=== PATIENT | female | born 1950 | race Caucasian/White ===

== ENCOUNTER → 2016-07-21 | Outpatient (CLI) | payer MEDICARE ==
--- NOTE | 2016-07-23 09:52 | MM ---
Reason for exam: screening (asymptomatic). Last mammogram was performed 1 year ago. History: Patient is postmenopausal. Family history of breast cancer in maternal grandmother. Physical Findings: A clinical breast exam by your physician is recommended on an annual basis and results should be correlated with mammographic findings. MG Screening Mammo w CAD Bilateral CC and MLO view(s) were taken. Prior study comparison: July 18, 2015, bilateral MG screening mammo w CAD. July 05, 2014, bilateral MG screening mammo w CAD. January 18, 2014, left breast MG diagnostic mammo LT w CAD. July 03, 2013, bilateral digital screening mammo w/CAD. There are scattered fibroglandular densities. No significant changes when compared with prior studies. ASSESSMENT: Negative, BI-RAD 1 RECOMMENDATION: Routine screening mammogram of both breasts in 1 year.
== END | disposition home or self-care (01) ==
LOC: RADMAMWWP 13:18
PROVIDERS: ATTEND Family Medicine
DX: Z12.31 Encounter for screening mammogram for malignant neoplasm of breast (principal)

== ENCOUNTER → 2016-12-01 | Day surgery (SDC) | payer MEDICARE ==
[2016-11-30 10:18] VITALS: BMI 22.9
[~2016-12-01] MED LIST: LACTATED RINGERS 1,000 ML IV SCH; LIDOCAINE 1% 20 ML VIAL (10MG/ML) FOR IV START INTRADERMA PRN; PROPOFOL 10 MG/ML 20 ML VIAL IV ONE
[2016-12-01 13:22] VITALS: RESP 18; TEMP 97
[2016-12-01 15:02] VITALS: BP 128/70; PULSE 64
--- NOTE | 2016-12-01 15:22 | P.PCN ---
Date of Procedure: 12/01/16 Preoperative Diagnosis: Postoperative Diagnosis: Procedure(s) Performed: Procedure: Total colonoscopy with biopsy. Preoperative diagnosis: Rectal bleeding and history of polyps. Postoperative diagnosis: 1. Segmental colitis in the distal sigmoid, probably representing resolving self-limited or ischemic colitis, not bleeding at the time of this exam. 2. Biopsies obtained. 3. No polyps or tumors. Preparation: HalfLytely prep. Sedation was provided by anesthesia. Brief clinical history: The patient is a 66-year-old female who is referred for an episode of rectal bleeding that lasted around 2 days last month while she drove to [place] [id number]. The patient did not have any changes in her bowels and has not had any bleeding since. She has history of polyps and I performed an upper endoscopy in June 2012. I recommended at that time a repeat exam in around 3 years. Procedure: With the patient on her left lateral decubitus position and after informed consent and adequate sedation, the perianal area was inspected and it did not show any fissures or fistulas. There were no masses felt on digital rectal examination. The Olympus CFQ 160L video colonoscope was then inserted in the rectum and the usual fashion and advanced to the cecum there was a 10 cm segment of resolving colitis in the distal sigmoid between 20-30 cm from the anal verge which showed edema erythema and friability of the mucosa but there was no ulcerations, exudation or spontaneous bleeding. No polyps or tumors were seen or any strictures or other pathology. I obtained biopsies in the sigmoid then the endoscope was withdrawn. The patient tolerated the procedure well. Plan: The patient was reassured. Will await biopsy results. Further plans can be made based on her course and biopsy results. She will follow-up with you as planned. With her history of polyps, I recommended repeat colonoscopy in 5 years. I will be happy to see as needed if her symptoms recur or change. Implants: Indications for Procedure: Operative Findings: Description of Procedure:
== END | disposition home or self-care (01) ==
LOC: ORWHC2ENDO 13:06
DX: K52.9 Noninfective gastroenteritis and colitis, unspecified (principal); Z87.19 Personal history of other diseases of the digestive system; Z86.010 Personal history of colon polyps; Z79.899 Other long term (current) drug therapy; Z88.0 Allergy status to penicillin
CPT/HCPCS: 88305; 45380; J2704

== ENCOUNTER → 2017-08-02 | Outpatient (CLI) | payer MEDICARE ==
--- NOTE | 2017-08-03 11:40 | MM ---
Reason for exam: screening (asymptomatic). Last mammogram was performed 1 year ago. History: Patient is postmenopausal. Family history of breast cancer in maternal grandmother. Physical Findings: A clinical breast exam by your physician is recommended on an annual basis and results should be correlated with mammographic findings. MG Screening Mammo w CAD Bilateral CC and MLO view(s) were taken. Prior study comparison: July 21, 2016, bilateral MG screening mammo w CAD. July 18, 2015, bilateral MG screening mammo w CAD. The breast tissue is heterogeneously dense. This may lower the sensitivity of mammography. Finding: There are typically benign diffuse/scattered calcifications in both breasts. No suspicious abnormality. No significant changes in finding since July 21, 2016 and July 18, 2015. ASSESSMENT: Benign, BI-RAD 2 RECOMMENDATION: Routine screening mammogram of both breasts in 1 year.
== END | disposition home or self-care (01) ==
LOC: RADMAMWWP 10:47
PROVIDERS: ATTEND Family Medicine
DX: Z12.31 Encounter for screening mammogram for malignant neoplasm of breast (principal)
CPT/HCPCS: 77067

== ENCOUNTER → 2018-08-03 | Outpatient (CLI) | payer MEDICARE ==
--- NOTE | 2018-08-04 12:01 | MM ---
Reason for exam: screening (asymptomatic). Last mammogram was performed 1 year ago. History: Patient is postmenopausal. Family history of breast cancer in maternal grandmother. Physical Findings: A clinical breast exam by your physician is recommended on an annual basis and results should be correlated with mammographic findings. MG Screening Mammo w CAD Bilateral CC and MLO view(s) were taken. Prior study comparison: August 02, 2017, bilateral MG screening mammo w CAD. July 21, 2016, bilateral MG screening mammo w CAD. The breast tissue is heterogeneously dense. This may lower the sensitivity of mammography. Stable benign calcifications. There is no discrete abnormality. No significant changes when compared with prior studies. ASSESSMENT: Benign, BI-RAD 2 RECOMMENDATION: Routine screening mammogram of both breasts in 1 year.
== END | disposition home or self-care (01) ==
LOC: RADMAMWWP 11:03
PROVIDERS: ATTEND Family Medicine
DX: Z12.31 Encounter for screening mammogram for malignant neoplasm of breast (principal)
CPT/HCPCS: 77067

== ENCOUNTER 2018-09-01 10:07 | Day surgery (SDC) | payer MEDICARE ==
[2018-08-31 08:25] VITALS: BMI 22.9
[~2018-09-01 10:07] MED LIST changes: -PROPOFOL 10 MG/ML 20 ML VIAL IV ONE
[2018-09-01 10:38] VITALS: TEMP 98.1
[2018-09-01] MEDS ORDERED: LACTATED RINGERS 1,000 ML IV ONE (10:41)
[2018-09-01] MEDS ORDERED: LIDOCAINE 1% 20 ML VIAL (10MG/ML) FOR IV START INTRADERMA ONE (10:42)
[2018-09-01] MEDS ORDERED: PROPOFOL 10 MG/ML 20 ML VIAL IV ONE (11:59)
[2018-09-01 12:33] VITALS: RESP 18
--- NOTE | 2018-09-01 12:43 | P.PCN ---
Date of Procedure: 09/01/18 Procedure(s) Performed: Procedure: Total colonoscopy. Preoperative diagnosis: Iron deficiency anemia. Postoperative diagnosis: Sigmoid diverticulosis with no evidence of acute diverticulitis, strictures, polyps or cancer. Preparation: HalfLytely prep. Sedation: Was provided by anesthesia. Brief clinical history: The patient is a 68-year-old female who is scheduled for this evaluation because of iron deficiency anemia. The patient had a prior colonoscopy in November 2016 for rectal bleeding and at that time she was found to have a segment of colitis in the distal sigmoid. She also has history of polyps. No history of overt bleeding. This evaluation is to assess for neoplasia or other pathology. Procedure: With the patient on her left lateral decubitus position and after informed consent and adequate sedation, the perianal area was inspected and it did not show any fissures or fistulas. There were no masses felt on digital rectal examination. The Olympus CFH 190L video colonoscope was then inserted in the rectum in the usual fashion and advanced to the cecum. There were few diverticular orifices seen scattered in the sigmoid but I saw no evidence of acute diverticulitis or strictures. The mucosa appeared healthy. No polyps or tumors were seen. I retroflexed the endoscope in the rectum before the endoscope was withdrawn. The patient tolerated the procedure well. Plan: The patient was reassured. Discussed dietary measures. As for her iron deficiency anemia, consideration can be given for an upper GI workup based on her symptoms and findings in the future.
[2018-09-01 13:14] VITALS: BP 105/65; PULSE 79
== END 2018-09-01 13:38 | disposition home or self-care (01) ==
LOC: ORWHC2ENDO 10:07
DX: K57.30 Diverticulosis of large intestine without perforation or abscess without bleeding (principal); D50.9 Iron deficiency anemia, unspecified; Z86.010 Personal history of colon polyps; Z88.0 Allergy status to penicillin
CPT/HCPCS: 45378; J2704

== ENCOUNTER → 2018-09-14 | Outpatient (CLI) | payer MEDICARE ==
--- NOTE | 2018-09-15 10:29 | ECHOF ---
Referral Reason:R01.1 Heart Murmur MEASUREMENTS -------- HEIGHT: 182.9 cm WEIGHT: 72.6 kg BP: IVSd: 1.9 cm (0.6 - 1.1) LVIDd: 3.5 cm (3.9 - 5.3) LVPWd: 2.1 cm (0.6 - 1.1) IVSs: 2.3 cm LVIDs: 2.0 cm LVPWs: 2.3 cm LAESV Index (A-L): 48.20 ml/m Ao Diam: 3.1 cm (2.0 - 3.7) AV Cusp: 1.9 cm (1.5 - 2.6) LA Diam: 4.1 cm (2.7 - 3.8) MV EXCURSION: 17.354 mm (> 18.000) MV EF SLOPE: 36 mm/s (70 - 150) EPSS: 0.3 cm MV E Vini: 0.56 m/s MV DecT: 156 ms MV A Vini: 0.92 m/s MV E/A Ratio: 0.61 AV maxP.33 mmHg AV meanP.78 mmHg AR PHT: 505 ms RAP: 5.00 mmHg RVSP: 71.73 mmHg FINDINGS -------- Sinus rhythm. This was a technically good study. The cavity size is decreased. There is severe concentric left ventricular hypertrophy. Overall le ft ventricular systolic function is normal with, an EF between 60 - 65 %. Possible infiltrative card iomyopathy. Ricco with a LVOT obstruction with a gradient of 112mmHg. The right ventricle is normal in size. LA is severely dilated >40 ml/m2 The right atrial size is normal. The aortic valve is trileaflet and appears structurally normal. Trace amount of aortic regurgitatio n. Mitral valve is thickened with myxomatous degeneration. The mitral valve leaflets are mildly thicke milton. Severe mitral regurgitation is present. Cannot exclude mitral valve prolapse. Mild tricuspid regurgitation present. There is moderate to severe pulmonary hypertension. The rig ht ventricular systolic pressure, as measured by Doppler, is 71.73mmHg. Trace/mild (physiologic) pulmonic regurgitation. The aortic root size is normal. Normal inferior vena cava with normal inspiratory collapse consistent with estimated right atrial pre ssure of 5 mmHg. There is a trivial pericardial effusion present. CONCLUSIONS -------- 1. Sinus rhythm. 2. This was a technically good study. 3. The cavity size is decreased. 4. There is severe concentric left ventricular hypertrophy. 5. Overall left ventricular systolic function is normal with, an EF between 60 - 65 %. 6. Possible infiltrative cardiomyopathy. 7. Ricco with a LVOT obstruction with a gradient of 112mmHg. 8. The right ventricle is normal in size. 9. LA is severely dilated >40 ml/m2 10. The right atrial size is normal. 11. The aortic valve is trileaflet and appears structurally normal. 12. Trace amount of aortic regurgitation. 13. Mitral valve is thickened with myxomatous degeneration. 14. The mitral valve leaflets are mildly thickened. 15. Severe mitral regurgitation is present. 16. Cannot exclude mitral valve prolapse. 17. Mild tricuspid regurgitation present. 18. There is moderate to severe pulmonary hypertension. 19. The right ventricular systolic pressure, as measured by Doppler, is 71.73mmHg. 20. Trace/mild (physiologic) pulmonic regurgitation. 21. The aortic root size is normal. 22. Normal inferior vena cava with normal inspiratory collapse consistent with estimated right atrial pressure of 5 mmHg. 23. There is a trivial pericardial effusion present. MACHINE B[employer]CH [employer]KER: Kamille Pierre RDCS
== END | disposition home or self-care (01) ==
LOC: RADECHMAIN 13:02
PROVIDERS: ATTEND Internal Medicine
DX: I08.1 Rheumatic disorders of both mitral and tricuspid valves (principal); I27.20 Pulmonary hypertension, unspecified; Q21.3 Tetralogy of Fallot; I31.3 Pericardial effusion (noninflammatory)
CPT/HCPCS: 93306

== ENCOUNTER → 2019-06-12 | Outpatient (CLI) | payer MEDICARE ==
[2019-06-12 15:17] LABS: MCHC 33.2 g/dL (31.0-37.0); MCV 90.2 fL (80.0-100.0); Mean Platelet Volume 7.1; Platelet Count 224 k/uL (150-450); RBC 3.99 m/uL (3.80-5.40); RDW 12.9 % (11.5-15.5); WBC 8.2 k/uL (3.8-10.6)
[2019-06-12 20:30] LABS: Erythrocyte Sedimentation Rate 58 mm/hr (0-20)
[2019-06-13 00:32] LABS: African American GFR (CKD) 87.8 (60.0-200.0); Albumin 4.1 g/dL (3.80-4.90); Albumin/Globulin Ratio 1.64 (1.60-3.17); Anion Gap 8.2 mmol/L (4.00-12.00); BUN/Creat Ratio 16.25 Ratio (12.00-20.00); Calcium 9.1 mg/dL (8.7-10.3); Carbon Dioxide 27.8 mmol/L (21.6-31.8); Globulin 2.5 g/dL (1.6-3.3); Non-African American GFR(CKD) 75.8 (60.0-200.0); Potassium 3.9 mmol/L (3.5-5.5); Total Bilirubin 0.4 mg/dL (0.3-1.2); Total Protein 6.6 g/dL (6.2-8.2)
== END | disposition home or self-care (01) ==
LOC: LABWHC1 14:13
PROVIDERS: ATTEND Internal Medicine
DX: R50.9 Fever, unspecified (principal)
CPT/HCPCS: 36415; 80053; 85027; 85652; 87040

== ENCOUNTER → 2019-11-01 | Outpatient (CLI) | payer MEDICARE ==
[2019-11-01 10:40] LABS: Basophils % (A) 1 %; Eosinophils # (A) 0.1 k/uL (0-0.7); Eosinophils % (A) 3 %; HCT 42.7 % (34.0-46.0); HGB 14.2 gm/dL (11.4-16.0); Lymphocytes # (A) 1.1 k/uL (1.0-4.8); Lymphocytes % (A) 28 %; MCH 29.9 pg (25.0-35.0); MCHC 33.1 g/dL (31.0-37.0); MCV 90.1 fL (80.0-100.0); Mean Platelet Volume 7.7; Monocytes # (A) 0.3 k/uL (0-1.0); Monocytes % (A) 8 %; Neutrophils # (A) 2.3 k/uL (1.3-7.7); Neutrophils % (A) 57 %; Platelet Count 206 k/uL (150-450); RBC 4.74 m/uL (3.80-5.40); RDW 13.9 % (11.5-15.5)
== END | disposition home or self-care (01) ==
LOC: LABWHC1 09:30
PROVIDERS: ATTEND Internal Medicine Cardiovascular Disease
DX: Z48.812 Encounter for surgical aftercare following surgery on the circulatory system (principal); Z95.2 Presence of prosthetic heart valve
CPT/HCPCS: 36415; 85025; 87040

== ENCOUNTER → 2020-03-18 | Outpatient (CLI) | payer MEDICARE ==
[2020-03-18 12:45] LABS: HCT 42.5 % (34.0-46.0); HGB 13.5 gm/dL (11.4-16.0); MCH 28.1 pg (25.0-35.0); MCHC 31.7 g/dL (31.0-37.0); MCV 88.6 fL (80.0-100.0); Mean Platelet Volume 6.9; Platelet Count 224 k/uL (150-450); RDW 13.2 % (11.5-15.5); WBC 6.1 k/uL (3.8-10.6)
[2020-03-18 21:06] LABS: African American GFR (CKD) 87.2 (60.0-200.0); Albumin 4.2 g/dL (3.80-4.90); Albumin/Globulin Ratio 1.75 (1.60-3.17); Calcium 9.2 mg/dL (8.7-10.3); Globulin 2.4 g/dL (1.6-3.3); Non-African American GFR(CKD) 75.2 (60.0-200.0); Potassium 4.4 mmol/L (3.5-5.5); Total Bilirubin 0.6 mg/dL (0.2-1.2); Total Protein 6.6 g/dL (6.2-8.2)
== END | disposition home or self-care (01) ==
LOC: LABWHC1 10:30
PROVIDERS: ATTEND Internal Medicine
DX: R50.9 Fever, unspecified (principal); I33.0 Acute and subacute infective endocarditis
CPT/HCPCS: 36415; 80053; 85027; 87040

== ENCOUNTER → 2020-05-03 | Outpatient (CLI) | payer MEDICARE ==
--- NOTE | 2020-05-06 10:36 | MM ---
Reason for exam: screening (asymptomatic). Last mammogram was performed 1 year and 9 months ago. History: Patient is postmenopausal. Family history of breast cancer in maternal grandmother. Physical Findings: A clinical breast exam by your physician is recommended on an annual basis and results should be correlated with mammographic findings. MG Screening Mammo w CAD Bilateral CC and MLO view(s) were taken. Prior study comparison: August 03, 2018, bilateral MG screening mammo w CAD. August 02, 2017, bilateral MG screening mammo w CAD. The breast tissue is heterogeneously dense. This may lower the sensitivity of mammography. Stable benign calcifications. No significant changes when compared with prior studies. ASSESSMENT: Benign, BI-RAD 2 RECOMMENDATION: Routine screening mammogram of both breasts in 1 year.
== END | disposition home or self-care (01) ==
LOC: RADMAMWWP 10:47
PROVIDERS: ATTEND Internal Medicine
DX: Z12.31 Encounter for screening mammogram for malignant neoplasm of breast (principal)
CPT/HCPCS: 77067

== ENCOUNTER → 2021-03-10 | Outpatient (CLI) | payer MEDICARE ==
[2021-03-10 19:16] LABS: HCT 41.3 % (37.2-46.3); MCH 28.8 pg (27.0-32.0); MCHC 31.5 g/dL (32.0-37.0); MCV 91.4 fL (80.0-97.0); Mean Platelet Volume 9.7 fL (9.5-12.2); Platelet Count 214 X 10*3/uL (140-440); RBC 4.52 X 10*6/uL (4.10-5.20); RDW 13.9 % (11.5-14.5); WBC 5.66 X 10*3/uL (4.50-10.00)
== END | disposition home or self-care (01) ==
LOC: LABWHC1 11:09
PROVIDERS: ATTEND Internal Medicine
DX: Z95.4 Presence of other heart-valve replacement (principal)
CPT/HCPCS: 36415; 85027; 87040

== ENCOUNTER → 2021-10-20 | Outpatient (CLI) | payer MEDICARE ==
--- NOTE | 2021-10-20 10:46 | XR ---
EXAMINATION TYPE: XR ribs bilat w pa chest xray DATE OF EXAM: 10/20/2021 CLINICAL HISTORY: Chest and bilateral rib pain. TECHNIQUE: Single frontal view of the chest is obtained. A frontal and oblique images of the bilatera l ribs. COMPARISON: None FINDINGS: Overlying sternal wires are present. Mild left basilar linear scarring and/or atelectasis. The cardiac silhouette size enlarged. Surgical change to cardiac valve suspected aortic valve is pre sent. Additional multiple surgical sutures suggest possible additional second cardiac valve surgical change. The osseous structures are intact. Dedicated images of the bilateral ribs show no acute displaced fractures. No suspicious lytic or scle rotic osseous lesions clearly seen. Overlying soft tissue is unremarkable. IMPRESSION: 1. Cardiomegaly an chronic changes with mild left basilar linear scarring and/or atelectasis. 2. No acute displaced rib fractures bilaterally.
== END | disposition home or self-care (01) ==
LOC: RADXRYALE 10:11
PROVIDERS: ATTEND Internal Medicine
DX: R07.82 Intercostal pain (principal)
CPT/HCPCS: 71111

== ENCOUNTER → 2021-10-31 | Outpatient (CLI) | payer MEDICARE ==
--- NOTE | 2021-11-10 08:31 | BD ---
EXAMINATION TYPE: Axial Bone Density DATE OF EXAM: 11/07/2021 COMPARISON: NONE CLINICAL HISTORY: 71 years year old Female. ICD-10 CODE: N958 OTHER SPECIFIED MENOPAUSAL AND PERIMEN OPAUSAL DISO Height: 66.5 Weight: 174.9 FRAX RISK QUESTIONS: Alcohol (3 or more units per day): NO Family History (Parent hip fracture): NO Glucocorticoids (More than 3mos): NO History of Fracture in Adulthood: YES Secondary Osteoporosis: 1. Type 1 Diabetes: NO 2. Hyperthyroidism: NO 3. Menopause before 45: NO 4. Malnutrition: NO 5. Chronic liver disease: NO Rheumatoid Arthritis: NO Current Tobacco Use: NO RISK FACTORS HISTORY OF: Hip Fracture (Right/Left): NO Spine Fracture: NO History of Wrist Fracture: NO Surgery to Spine/Hip(right/left)/Wrist (right/left): NO Family History of Osteoporosis: NO Active: YES Diet low in dairy products/other sources of calcium: NO Postmenopausal woman: YES Take estrogen and/or progesterone medications: NO Lost more than 2 inches in height since high school: YES Frequent falls: NO Poor Health: NO Hyperparathyroidism: NO Adrenal Insufficiency: NO MEDICATIONS: Prednisone or other steroids: NO Thyroid Medications: NO Osteoporosis Medications: NO Additional Medications: REFLUX MEDS, MULTI VIT., Additional History: EXAM MEASUREMENTS: Bone mineral densitometry was performed using the [employer] System. Bone mineral density as measured about the Lumbar spine is: ----- L1-L4(G/cm2): 0.926 T Score Values are as follows: ----- L1: -2.6 ----- L2: -2.8 ----- L3: -1.6 ----- L4: -1.9 ----- L1-L4: -2.1 Bone mineral density about the R hip (g/cm2): 0.919 Bone mineral density about the L hip (g/cm2): 0.891 T Score values are as follows: -----R Neck: -0.9 -----L Neck: -1.1 -----R Total: -1.2 -----L Total: -1.0 Bone mineral density has: DECREASED 5.3 % since study of: 05/26/2001 FRAX%s: The graph provided illustrates a 9.0% chance for a major osteoporotic fx and a 1.0% chance fo r the hips probability for fx in 10 years time. IMPRESSION: Osteopenia (T Score between -2.5 and -1). There is slightly increased risk of fracture and the patient may be considered for treatment. Re-Screen 2-5 years. NOTE: T-SCORE=SD OF THE YOUNG ADULT MEAN.
== END | disposition home or self-care (01) ==
LOC: RADBDWWP 08:29
PROVIDERS: ATTEND Internal Medicine
DX: Z53.9 Procedure and treatment not carried out, unspecified reason (principal)

== ENCOUNTER → 2022-06-19 | Outpatient (CLI) | payer MEDICARE ==
--- NOTE | 2022-06-22 08:02 | MM ---
Reason for Exam: Screening (asymptomatic). Last screening mammogram was performed 12 month(s) ago. Patient History: Menarche at age 14. First Full-Term at age 19. Postmenopausal. Patient has history of breast feeding. Maternal grandmother had breast cancer. Risk Values: Marnie 5 year model risk: 1.3%. NCI Lifetime model risk: 3.5%. Prior Study Comparison: 08/03/2018 Bilateral Screening Mammogram, [facility]. 05/03/2020 Bilateral Screening Mammogram, [facility]. 06/16/2021 Bilateral Screening Mammogram, [facility]. Tissue Density: The breast tissue is heterogeneously dense. This may lower the sensitivity of mammography. Findings: Analyzed By CAD. There is no suspicious group of microcalcifications or new suspicious mass in either breast. Overall Assessment: Negative, BI-RAD 1 Management: Screening Mammogram of both breasts in 1 year. A clinical breast exam by your physician is recommended on an annual basis and results should be correlated with mammographic findings. [facility] will attempt to contact patient to return for supplemental views and ultrasound if indicated. Electronically signed and approved by: Joel Cole DO
== END | disposition home or self-care (01) ==
LOC: RADMAMWWP 11:16
PROVIDERS: ATTEND Internal Medicine
DX: Z12.31 Encounter for screening mammogram for malignant neoplasm of breast (principal); Z78.0 Asymptomatic menopausal state; Z80.3 Family history of malignant neoplasm of breast
CPT/HCPCS: 77067

== ENCOUNTER → 2023-01-18 | Outpatient (CLI) | payer MEDICARE ==
--- NOTE | 2023-01-19 11:19 | XR ---
EXAMINATION TYPE: XR foot complete bilateral DATE OF EXAM: 01/18/2023 4:58 PM INDICATION: Patient age:Female; 72 years old; Reason for study: [id number] [place] FOOT PAIN; [facility]. COMPARISON: 11/17/2015. TECHNIQUE: The bilateral feet were examined in the AP, oblique, and lateral projections. FINDINGS: There is metallic density within the right foot calcaneus which is unclear whether its radiopaque fix ation hardware. There is adjacent sclerotic lesion next to this. Mild degeneration changes of the fir st digit metatarsal phalangeal joints. No evidence of acute fracture bilaterally. IMPRESSION: 1. Left: No evidence of acute process involving the left foot. Mild degeneration at the first metata rsophalangeal joint. 2. Right: Sequela of prior fracture right calcaneal fracture with fixation hardware which appears fr actured and sclerosis. No evidence of acute fracture within the right foot. There is mild degeneratio n changes of the first digit metatarsal phalangeal joint.
== END | disposition home or self-care (01) ==
LOC: RADXRYALE 15:55
PROVIDERS: ATTEND Internal Medicine
DX: M19.072 Primary osteoarthritis, left ankle and foot (principal); M19.071 Primary osteoarthritis, right ankle and foot; S92.001A Unspecified fracture of right calcaneus, initial encounter for closed fracture; X58.XXXA Exposure to other specified factors, initial encounter

== ENCOUNTER 2023-01-22 13:00 | Emergency (ER) | payer MEDICARE ==
[2023-01-22 13:05] VITALS: RESP 18; TEMP 97.8
[2023-01-22 13:20] LABS: Glucose,Whole Blood 107 mg/dL (70-110)
--- NOTE | 2023-01-22 13:20 | ED ---
General Adult HPI - General Chief complaint: Weakness Stated complaint: Weakness Time Seen by Provider: 01/22/23 13:05 Source: patient, EMS Mode of arrival: EMS Limitations: no limitations - History of Present Illness Initial comments: Dictation was produced using [employer] dictation software. please excuse any grammatical, word or spelling errors. Chief Complaint: 73-year-old female presents to the emergency department for presyncope History of Present Illness: This 73-year-old female 2019 she had 2 cardiac valves replaced. She is a patient from to the [facility] system. She had a bovine valve replacements. Patient felt fine this morning she woke up and her and her friend were driving around check in on garage sales. They brought some lunch and went to the park to go eat lunch. She went to the bathroom to wash out. She is walking to the bathroom when all of a sudden she felt faint. She did not make it to the bathroom and was able to lower herself. EMS was called. Patient is a history of syncope. At time around her episode she did not report any palpitations. She has no pain complaints. Since being in the ER she feels close to baseline except for some mild nausea. The ROS documented in this emergency department record has been reviewed and confirmed by me. Those systems with pertinent positive or negative responses have been documented in the HPI. All other systems are other negative and/or noncontributory. - Related Data Home Medications Medication Instructions Recorded Confirmed Calcium Carbonate [Calcium] 600 mg PO DAILY 01/22/23 01/22/23 Multivitamins, Thera [Multivitamin 1 tab PO DAILY 01/22/23 01/22/23 (formulary)] Turmeric Root Extract [Turmeric] 500 mg PO DAILY 01/22/23 01/22/23 Allergies Allergy/AdvReac Type Severity Reaction Status Date / Time Penicillins Allergy Rash/Hives Verified 01/22/23 14:52 Anesthetics - Amide Type - AdvReac Confusion Verified 01/22/23 14:56 Select A Anesthetics - Leanne Type- AdvReac Confusion Verified 01/22/23 14:56 Parabens Review of Systems ROS Statement: Those systems with pertinent positive or pertinent negative responses have been documented in the HPI. ROS Other: All systems not noted in ROS Statement are negative. Past Medical History Past Medical History: No Reported History, Skin Disorder Additional Past Medical History / Comment(s): rosacea. anemia History of Any Multi-Drug Resistant Organisms: None Reported Past Surgical History: Orthopedic Surgery Additional Past Surgical History / Comment(s): THORACOTOMY R/T BENIGN MASS BETWEEN HEART AND LUNGS, ORIF rt foot. colonoscopy, Past Anesthesia/Blood Transfusion Reactions: No Reported Reaction Additional Past Anesthesia/Blood Transfusion Reaction / Comment(s): . Past Psychological History: No Psychological Hx Reported Smoking Status: Never smoker Past Alcohol Use History: None Reported Past Drug Use History: None Reported - Past Family History Father Family Medical History: Myocardial Infarction (RI) Mother Family Medical History: No Reported History General Exam - General Exam Comments Initial Comments: PHYSICAL EXAM: General Impression: Alert and oriented x3, not in acute distress HEENT: Normocephalic atraumatic, extra-ocular movements intact, pupils equal and reactive to light bilaterally, mucous membranes moist. Cardiovascular: Heart regular rate and rhythm Chest: Able to complete full sentences, no retractions, no tachypnea Abdomen: abdomen soft, non-tender, non-distended, no organomegaly Musculoskeletal: Pulses present and equal in all extremities, no peripheral edema Motor: no focal deficits noted Neurological: CN II-XII grossly intact, no focal motor or sensory deficits noted Skin: Intact with no visualized rashes Psych: Normal affect and mood Limitations: no limitations Course Vital Signs 01/22/23 01/22/23 13:02 14:21 Temperature 97.8 F Pulse Rate 81 68 Respiratory 18 18 Rate Blood Pressure 169/83 156/87 O2 Sat by Pulse 96 96 Oximetry EKG Findings - EKG Comments: EKG Findings:: My EKG interpretation: Ventricular rate 72, sinus rhythm, left bundle branch block,. 159, QRS 169, QTc 471. EKG is not suggestive of ischemia or infarction. No Sgarbossa criteria met. No MD prolongation, no QTC prolongation, no ST or T-wave changes noted. No old EKG for comparison. Overall, this EKG is unremarkable Medical Decision Making - Medical Decision Making Was pt. sent in by a medical professional or institution (, PA, CHARGE OPERATOR, urgent care, hospital, or long term...) When possible be specific @ -No Did you speak to anyone other than the patient for history (EMS, parent, family, police, friend...)? What history was obtained from this source @ -Some history obtained from daughters at the bedside states that she had an echo recently in has no history of cardiomyopathy Did you review nursing and triage notes (agree or disagree)? Why? @ -I reviewed and agree with nursing and triage notes Were old charts reviewed (outside hosp., previous admission, EMS record, old EKG, old radiological studies, urgent care reports/EKG's, long term records)? Report findings @ -No old charts were reviewed Differential Diagnosis (chest pain, altered mental status, abdominal pain women, abdominal pain men, vaginal bleeding, musculoskeletal, weakness, fever, dyspnea, syncope, headache, dizziness, GI bleed, back pain, seizure, CVA, palpatations, mental health)? @ -Differential Weakness: Hypoglycemia, shock, sepsis, hyponatremia, anemia, infection, RI, ETOH, adverse medicine reaction, overdose, stroke, this is not meant to be an all-inclusive list. EKG interpreted by me (3pts min.). @ -See above X-rays interpreted by me (1pt min.). @ -Chest x-ray is unremarkable for acute processes CT interpreted by me (1pt min.). @ -None done U/S interpreted by me (1pt. min.). @ -None done What testing was considered but not performed or refused? (CT, X-rays, U/S, labs)? Why? @ -None What meds were considered but not given or refused? Why? @ -None Did you discuss the management of the patient with other professionals (professionals i.e. , PA, CHARGE OPERATOR, lab, RT, psych nurse, social services analyst, conduit helper, teacher, development officer, correctional case manager)? Give summary @ -No Was smoking cessation discussed for >3mins.? @ -No Was critical care preformed (if so, how long)? @ -No Were there social determinants of health that impacted care today? How? (Homelessness, low income, unemployed, alcoholism, drug addiction, transportation, low edu. Level, literacy, decrease access to med. care, [facility], rehab)? @ -No Was there de-escalation of care discussed even if they declined (Discuss DNR or withdrawal of care, Hospice)? DNR status @ -No What co-morbidities impacted this encounter? (DM, HTN, Smoking, COPD, CAD, Cancer, CVA, ARF, Chemo, Hep., AIDS, mental health diagnosis, sleep apnea, morbid obesity)? @ -None Was patient admitted / discharged? Hospital course, mention meds given and route, prescriptions, significant lab abnormalities, going to OR and other pertinent info. @ -73-year-old female presents to the emergency department for presyncope. State that she felt lightheaded when she started to lower cell to the ground. Denies any fall. Patient has no history of cardio myopathy how she does have history of valve replacements. Patient reports feeling at baseline. Laboratory evaluation obtained. CBC, coag panel metabolic panel is within acceptable limits. Abdominal negative. Patient is slightly elevated BUN to creatinine ratio suggesting some degree of dehydration. Patient observed in the emergency department for approximately 2 hours. Reevaluated bedside tolerating oral intake. She feels back to baseline. Daughter is at the bedside state the patient appears well. She decision-making: Patient is agreeable for discharge. Return precautions discussed she is strongly advised to follow-up with her primary care doctor. Undiagnosed new problem with uncertain prognosis? @ -No Drug Therapy requiring intensive monitoring for toxicity (Heparin, Nitro, Insulin, Cardizem)? @ -No Were any procedures done? @ -No Diagnosis/symptom? Acute, or Chronic, or Acute on Chronic? Uncomplicated (without systemic symptoms) or Complicated (systemic symptoms)? @ -Pre-syncope Side effects of treatment? @ -No Exacerbation, Progression, or Severe Exacerbation? @ -No Poses a threat to life or bodily function? How? (Chest pain, USA, RI, pneumonia, PE, COPD, DKA, ARF, appy, cholecystitis, CVA, Diverticulitis, Homicidal, Suicidal, threat to staff... and all critical care pts) @ -No - Lab Data Result diagrams: 01/22/23 13:43 01/22/23 13:43 Lab Results 01/22/23 01/22/23 01/22/23 Range/Units 13:18 13:43 13:43 WBC 5.3 (3.8-10.6) k/uL RBC 4.70 (3.80-5.40) m/uL Hgb 13.4 (11.4-16.0) gm/dL Hct 39.8 (34.0-46.0) % MCV 84.6 (80.0-100.0) fL MCH 28.5 (25.0-35.0) pg MCHC 33.7 (31.0-37.0) g/dL RDW 15.9 H (11.5-15.5) % Plt Count 157 (150-450) k/uL MPV 7.7 Neutrophils % 62 % Lymphocytes % 28 % Monocytes % 6 % Eosinophils % 2 % Basophils % 1 % Neutrophils # 3.3 (1.3-7.7) k/uL Lymphocytes # 1.5 (1.0-4.8) k/uL Monocytes # 0.3 (0-1.0) k/uL Eosinophils # 0.1 (0-0.7) k/uL Basophils # 0.0 (0-0.2) k/uL PT 9.7 (9.0-12.0) sec INR 0.9 (<1.2) APTT 22.0 (22.0-30.0) sec Sodium (137-145) mmol/L Potassium (3.5-5.1) mmol/L Chloride (98-107) mmol/L Carbon Dioxide (22-30) mmol/L Anion Gap mmol/L BUN (7-17) mg/dL Creatinine (0.52-1.04) mg/dL Est GFR (CKD-EPI)AfAm (>60 ml/min/1.73 sqM) Est GFR (CKD-EPI)NonAf (>60 ml/min/1.73 sqM) Glucose (74-99) mg/dL POC Glucose (mg/dL) 107 (70-110) mg/dL POC Glu [employer] ID Jorje Harris Plasma Lactic Acid Patricio (0.7-2.0) mmol/L Calcium (8.4-10.2) mg/dL Magnesium (1.6-2.3) mg/dL Total Bilirubin (0.2-1.3) mg/dL AST (14-36) U/L ALT (4-34) U/L Alkaline Phosphatase (38-126) U/L Troponin I (0.000-0.034) ng/mL Total Protein (6.3-8.2) g/dL Albumin (3.5-5.0) g/dL 01/22/23 01/22/23 01/22/23 Range/Units 13:43 13:43 13:43 WBC (3.8-10.6) k/uL RBC (3.80-5.40) m/uL Hgb (11.4-16.0) gm/dL Hct (34.0-46.0) % MCV (80.0-100.0) fL MCH (25.0-35.0) pg MCHC (31.0-37.0) g/dL RDW (11.5-15.5) % Plt Count (150-450) k/uL MPV Neutrophils % % Lymphocytes % % Monocytes % % Eosinophils % % Basophils % % Neutrophils # (1.3-7.7) k/uL Lymphocytes # (1.0-4.8) k/uL Monocytes # (0-1.0) k/uL Eosinophils # (0-0.7) k/uL Basophils # (0-0.2) k/uL PT (9.0-12.0) sec INR (<1.2) APTT (22.0-30.0) sec Sodium 135 L (137-145) mmol/L Potassium 4.7 (3.5-5.1) mmol/L Chloride 105 (98-107) mmol/L Carbon Dioxide 26 (22-30) mmol/L Anion Gap 4 mmol/L BUN 22 H (7-17) mg/dL Creatinine 0.74 (0.52-1.04) mg/dL Est GFR (CKD-EPI)AfAm >90 (>60 ml/min/1.73 sqM) Est GFR (CKD-EPI)NonAf 82 (>60 ml/min/1.73 sqM) Glucose 102 H (74-99) mg/dL POC Glucose (mg/dL) (70-110) mg/dL POC Glu [employer] ID Plasma Lactic Acid Patricio 1.2 (0.7-2.0) mmol/L Calcium 9.1 (8.4-10.2) mg/dL Magnesium 2.0 (1.6-2.3) mg/dL Total Bilirubin 0.6 (0.2-1.3) mg/dL AST 32 (14-36) U/L ALT 16 (4-34) U/L Alkaline Phosphatase 56 (38-126) U/L Troponin I <0.012 (0.000-0.034) ng/mL Total Protein 7.0 (6.3-8.2) g/dL Albumin 3.9 (3.5-5.0) g/dL Disposition Clinical Impression: Pre-syncope Disposition: ADMITTED IP TO THIS HOSP Condition: Good Instructions (If sedation given, give patient instructions): Dehydration (ED) Is patient prescribed a controlled substance at d/c from ED?: No Referrals: Elsa Brice MD [Primary Care Provider] - 1-2 days Time of Disposition: 15:02
[2023-01-22] MEDS ORDERED: SODIUM CHLORIDE 0.9% 1,000 ML IV STA (13:43)
[2023-01-22 14:09] LABS: Basophils % (A) 1 %; Eosinophils # (A) 0.1 k/uL (0-0.7); Eosinophils % (A) 2 %; HCT 39.8 % (34.0-46.0); HGB 13.4 gm/dL (11.4-16.0); Lymphocytes # (A) 1.5 k/uL (1.0-4.8); Lymphocytes % (A) 28 %; MCH 28.5 pg (25.0-35.0); MCHC 33.7 g/dL (31.0-37.0); MCV 84.6 fL (80.0-100.0); Mean Platelet Volume 7.7; Monocytes # (A) 0.3 k/uL (0-1.0); Monocytes % (A) 6 %; Neutrophils # (A) 3.3 k/uL (1.3-7.7); Neutrophils % (A) 62 %; Platelet Count 157 k/uL (150-450); RDW 15.9 % (11.5-15.5); WBC 5.3 k/uL (3.8-10.6)
[2023-01-22 14:22] VITALS: BP 156/87; PULSE 68
[2023-01-22 14:22] LABS: ALT 16 U/L (4-34); African American GFR (CKD) >90 (>60 ml/min/1.73 sqM); Albumin 3.9 g/dL (3.5-5.0); Anion Gap 4 mmol/L; Blood Urea Nitrogen 22 mg/dL (7-17); Calcium 9.1 mg/dL (8.4-10.2); Carbon Dioxide 26 mmol/L (22-30); Chloride 105 mmol/L (98-107); Glucose 102 mg/dL (74-99); Non-African American GFR(CKD) 82 (>60 ml/min/1.73 sqM); Sodium 135 mmol/L (137-145); Total Bilirubin 0.6 mg/dL (0.2-1.3)
[2023-01-22 14:25] LABS: AST 32 U/L (14-36); Alkaline Phosphatase 56 U/L (38-126); Potassium 4.7 mmol/L (3.5-5.1)
[2023-01-22 14:27] LABS: INR 0.9 (<1.2); Prothrombin Time 9.7 sec (9.0-12.0)
--- NOTE | 2023-01-22 14:41 | XR ---
EXAMINATION TYPE: XR chest 1V portable DATE OF EXAM: 01/22/2023 HISTORY: Shortness of breath. COMPARISON: 10/20/2021 TECHNIQUE: Single view of the chest is submitted. FINDINGS: Demonstrated are scattered senescent parenchymal change. There is no evidence for focal infiltrate. The heart is stable. Hilar and mediastinal structures are within normal limits. Degenerative changes are seen of the dorsal spine. IMPRESSION: 1. Chronic changes without evidence for acute pulmonary disease.
--- NOTE | 2023-01-22 15:25 | ED ---
Medical Decision Making - Lab Data Result diagrams: 01/22/23 13:43 01/22/23 13:43 Lab Results 01/22/23 01/22/23 01/22/23 Range/Units 13:18 13:43 13:43 WBC 5.3 (3.8-10.6) k/uL RBC 4.70 (3.80-5.40) m/uL Hgb 13.4 (11.4-16.0) gm/dL Hct 39.8 (34.0-46.0) % MCV 84.6 (80.0-100.0) fL MCH 28.5 (25.0-35.0) pg MCHC 33.7 (31.0-37.0) g/dL RDW 15.9 H (11.5-15.5) % Plt Count 157 (150-450) k/uL MPV 7.7 Neutrophils % 62 % Lymphocytes % 28 % Monocytes % 6 % Eosinophils % 2 % Basophils % 1 % Neutrophils # 3.3 (1.3-7.7) k/uL Lymphocytes # 1.5 (1.0-4.8) k/uL Monocytes # 0.3 (0-1.0) k/uL Eosinophils # 0.1 (0-0.7) k/uL Basophils # 0.0 (0-0.2) k/uL PT 9.7 (9.0-12.0) sec INR 0.9 (<1.2) APTT 22.0 (22.0-30.0) sec Sodium (137-145) mmol/L Potassium (3.5-5.1) mmol/L Chloride (98-107) mmol/L Carbon Dioxide (22-30) mmol/L Anion Gap mmol/L BUN (7-17) mg/dL Creatinine (0.52-1.04) mg/dL Est GFR (CKD-EPI)AfAm (>60 ml/min/1.73 sqM) Est GFR (CKD-EPI)NonAf (>60 ml/min/1.73 sqM) Glucose (74-99) mg/dL POC Glucose (mg/dL) 107 (70-110) mg/dL POC Glu [employer] ID Kimberly, Jorje Plasma Lactic Acid Patricio (0.7-2.0) mmol/L Calcium (8.4-10.2) mg/dL Magnesium (1.6-2.3) mg/dL Total Bilirubin (0.2-1.3) mg/dL AST (14-36) U/L ALT (4-34) U/L Alkaline Phosphatase (38-126) U/L Troponin I (0.000-0.034) ng/mL Total Protein (6.3-8.2) g/dL Albumin (3.5-5.0) g/dL 01/22/23 01/22/23 01/22/23 Range/Units 13:43 13:43 13:43 WBC (3.8-10.6) k/uL RBC (3.80-5.40) m/uL Hgb (11.4-16.0) gm/dL Hct (34.0-46.0) % MCV (80.0-100.0) fL MCH (25.0-35.0) pg MCHC (31.0-37.0) g/dL RDW (11.5-15.5) % Plt Count (150-450) k/uL MPV Neutrophils % % Lymphocytes % % Monocytes % % Eosinophils % % Basophils % % Neutrophils # (1.3-7.7) k/uL Lymphocytes # (1.0-4.8) k/uL Monocytes # (0-1.0) k/uL Eosinophils # (0-0.7) k/uL Basophils # (0-0.2) k/uL PT (9.0-12.0) sec INR (<1.2) APTT (22.0-30.0) sec Sodium 135 L (137-145) mmol/L Potassium 4.7 (3.5-5.1) mmol/L Chloride 105 (98-107) mmol/L Carbon Dioxide 26 (22-30) mmol/L Anion Gap 4 mmol/L BUN 22 H (7-17) mg/dL Creatinine 0.74 (0.52-1.04) mg/dL Est GFR (CKD-EPI)AfAm >90 (>60 ml/min/1.73 sqM) Est GFR (CKD-EPI)NonAf 82 (>60 ml/min/1.73 sqM) Glucose 102 H (74-99) mg/dL POC Glucose (mg/dL) (70-110) mg/dL POC Glu [employer] ID Plasma Lactic Acid Patricio 1.2 (0.7-2.0) mmol/L Calcium 9.1 (8.4-10.2) mg/dL Magnesium 2.0 (1.6-2.3) mg/dL Total Bilirubin 0.6 (0.2-1.3) mg/dL AST 32 (14-36) U/L ALT 16 (4-34) U/L Alkaline Phosphatase 56 (38-126) U/L Troponin I <0.012 (0.000-0.034) ng/mL Total Protein 7.0 (6.3-8.2) g/dL Albumin 3.9 (3.5-5.0) g/dL Disposition Clinical Impression: Pre-syncope Disposition: HOME SELF-CARE Condition: Good Instructions (If sedation given, give patient instructions): Dehydration (ED) Is patient prescribed a controlled substance at d/c from ED?: No Referrals: Elsa Brice MD [Primary Care Provider] - 1-2 days
== END 2023-01-22 15:40 | disposition home or self-care (01) ==
LOC: EC 13:00
DX: R55 Syncope and collapse (principal); Z88.0 Allergy status to penicillin; Z88.4 Allergy status to anesthetic agent
CPT/HCPCS: 36415; 71045; 80053; 83605; 83735; 84484; 85025; 85610; 85730; 93005; 96360; 99285

== ENCOUNTER → 2023-03-16 | Outpatient (CLI) | payer MEDICARE | END | disposition home or self-care (01) | LOC: LABWHC1 08:29 | PROVIDERS: ATTEND Internal Medicine Cardiovascular Disease | DX: I05.8 Other rheumatic mitral valve diseases (principal) | CPT/HCPCS: 36415; 85652; 87040 ==

== ENCOUNTER → 2023-03-16 | Outpatient (CLI) | payer MEDICARE ==
--- NOTE | 2023-04-02 10:02 | P.CEMON ---
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
== END | disposition home or self-care (01) ==
LOC: RADECHMAIN 07:45
PROVIDERS: ATTEND Psychiatry & Neurology Neurology
DX: I45.10 Unspecified right bundle-branch block (principal); I49.9 Cardiac arrhythmia, unspecified
CPT/HCPCS: 93270

== ENCOUNTER → 2023-06-30 | Outpatient (CLI) | payer MEDICARE ==
--- NOTE | 2023-07-01 20:22 | MM ---
Reason for Exam: Screening (asymptomatic). Last screening mammogram was performed 12 month(s) ago. Patient History: Menarche at age 14. First Full-Term at age 19. Postmenopausal. Patient has history of breast feeding. Maternal grandmother had breast cancer. Risk Values: Marnie 5 year model risk: 1.3%. NCI Lifetime model risk: 3.3%. Prior Study Comparison: 05/03/2020 Bilateral Screening Mammogram, [facility]. 06/16/2021 Bilateral Screening Mammogram, [facility]. 06/19/2022 Bilateral MG screening mammo w CAD, [facility]. Tissue Density: The breast tissue is heterogeneously dense. This may lower the sensitivity of mammography. Findings: Analyzed By CAD. Unchanged central asymmetric density left cc view. There is no suspicious group of microcalcifications or new suspicious mass in either breast. Overall Assessment: Benign, BI-RAD 2 Management: Screening Mammogram of both breasts in 1 year. . Patient should continue monthly self-breast exams. A clinical breast exam by your physician is recommended on an annual basis. This exam should not preclude additional follow-up of suspicious palpable abnormalities. Note on Marnie scores and lifetime risk: 1. A Marnie score greater than 3% is considered moderate risk. If this is the case, consider specialist referral to assess eligibility for a risk reducing agent. 2. If overall lifetime risk for the development of breast cancer is 20% or higher, the patient may qualify for future screening with alternating mammogram and breast MRI. Electronically signed and approved by: Lisa Rodas M.D. Radiologist
== END | disposition home or self-care (01) ==
LOC: RADMAMWWP 10:45
PROVIDERS: ATTEND Internal Medicine
DX: Z12.31 Encounter for screening mammogram for malignant neoplasm of breast (principal); Z78.0 Asymptomatic menopausal state; Z80.3 Family history of malignant neoplasm of breast
CPT/HCPCS: 77067

== ENCOUNTER → 2024-04-10 | Outpatient (CLI) | payer MEDICARE ==
--- NOTE | 2024-04-10 17:36 | BD ---
EXAMINATION TYPE: Axial Bone Density DATE OF EXAM: 04/10/2024 CLINICAL HISTORY: 74 years old Female. ICD-10 CODE: N95.8 MENOPAUSAL AND PERIMENOPAUSAL DISORDERS Height: 66 Weight: 179 FRAX RISK QUESTIONS: History of Fracture in Adulthood: yes Secondary Osteoporosis: RISK FACTORS HISTORY OF: MEDICATIONS: EXAM MEASUREMENTS: Bone mineral densitometry was performed using the [employer] System. Bone mineral density as measured about the Lumbar spine is: ----- L1-L4(G/cm2): 0.972 T Score Values are as follows: ----- L1: -2.4 ----- L2: -2.2 ----- L3: -1.5 ----- L4: -1.2 ----- L1-L4: -1.7 Z Score Values are as follows: ----- L1: -1.3 ----- L2: -1.0 ----- L3: -0.3 ----- L4: -0.1 ----- L1-L4: -0.5 Bone mineral density has: Increased 5.0% since study of: 11-07-21 Bone mineral density about the R hip (g/cm2): 0.847 Bone mineral density about the L hip (g/cm2): 0.833 T Score values are as follows: -----R Neck: -1.1 -----L Neck: -1.4 -----R Total: -1.3 -----L Total: -1.4 Z Score values are as follows: -----R Neck: 0.4 -----L Neck: 0.0 -----R Total: 0.0 -----L Total: -0.1 Bone mineral density has: Decreased -2.8% since study of: 11-07-21 FRAX%s: The graph provided illustrates a 16.3% chance for a major osteoporotic fx and a 2.6% chance f or the hips probability for fx in 10 years time. IMPRESSION: Osteopenia (T Score between -2.5 and -1). There is slightly increased risk of fracture and the patient may be considered for treatment. Re-Screen 2-5 years. NOTE: T-SCORE=SD OF THE YOUNG ADULT MEAN. [facility], , 04/10/2024 5:34 PM
== END | disposition home or self-care (01) ==
LOC: RADBDWWP 11:24
PROVIDERS: ATTEND Internal Medicine
CPT/HCPCS: 77080

== ENCOUNTER → 2024-07-05 | Outpatient (CLI) | payer MEDICARE ==
--- NOTE | 2024-07-05 11:44 | MM ---
Reason for Exam: Screening (asymptomatic). Last screening mammogram was performed 12 month(s) ago. Patient History: Menarche at age 14. First Full-Term at age 19. Postmenopausal. Patient has history of breast feeding. Maternal grandmother had breast cancer. Risk Values: Marnie 5 year model risk: 1.3%. NCI Lifetime model risk: 3.1%. Prior Study Comparison: 06/16/2021 Bilateral Screening Mammogram, [facility]. 06/19/2022 Bilateral MG screening mammo w CAD, [facility]. 06/30/2023 Bilateral MG screening mammo w CAD, [facility]. Tissue Density: There are scattered areas of fibroglandular density. Findings: Analyzed By CAD. Unchanged 12:00 focal asymmetry left breast. A few benign round calcifications are also unchanged. There is no suspicious group of microcalcifications or new suspicious mass in either breast. Overall Assessment: Benign, BI-RAD 2 Management: Screening Mammogram of both breasts in 1 year. Patient should continue monthly self-breast exams. A clinical breast exam by your physician is recommended on an annual basis. This exam should not preclude additional follow-up of suspicious palpable abnormalities. Note on Marnie scores and lifetime risk: 1. A Marnie score greater than 3% is considered moderate risk. If this is the case, consider specialist referral to assess eligibility for a risk reducing agent. 2. If overall lifetime risk for the development of breast cancer is 20% or higher, the patient may qualify for future screening with alternating mammogram and breast MRI. [facility], , 07/05/2024 11:41 AM. Electronically signed and approved by: Lisa Rodas M.D. Radiologist
== END | disposition home or self-care (01) ==
LOC: RADMAMWWP 10:35
PROVIDERS: ATTEND Internal Medicine
DX: Z12.31 Encounter for screening mammogram for malignant neoplasm of breast (principal); Z78.0 Asymptomatic menopausal state; Z80.3 Family history of malignant neoplasm of breast; R92.323 Mammographic fibroglandular density, bilateral breasts
CPT/HCPCS: 77067